=== PATIENT | female | born 1990 | race American Indian/Alaskan Native ===

== ENCOUNTER 2019-09-19 16:46 | Emergency (ER) | payer BC ==
--- NOTE | 2019-09-19 17:29 | XRay Report ---
CHEST 2 VIEWS INDICATION / CLINICAL INFORMATION: SOB, body aches. COMPARISON: None available. FINDINGS: SUPPORT DEVICES: None. HEART / MEDIASTINUM: No significant abnormality. LUNGS / PLEURA: No significant pulmonary or pleural abnormality. No pneumothorax. ADDITIONAL FINDINGS: No significant additional findings. IMPRESSION: 1. No acute abnormality of the chest. Signer Name: Jose Martin Orellana MD Signed: 09/19/2019 5:25 PM Workstation Name: [id number]
--- NOTE | 2019-09-19 19:55 | Emergency Department Report ---
ED General Adult HPI - General Chief complaint: Dyspnea/Respdistress Stated complaint: CP Time Seen by Provider: 09/19/19 19:39 Source: patient Mode of arrival: Ambulatory Limitations: No Limitations - History of Present Illness Initial comments: 28-year-old -[place]ron[place] female presents to the emergency room complaining of shortness of breath and chest pains. 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 Patient states that she feels like she is having many panic attacks. Patient states is been going on for the last 2 days. Patient does admit to sharp pain that is intermittent. Patient feels overall well but times. Patient states that she has not set a 5-year-old twins at home. She admits to difficulty sleeping admits to moments of crying. Feels like her patient is running short with her kids denies any headache. She admits to feeling distance at times. She denies any suicidal homicidal ideat ions. She states that she has had this in the past but has been able to talk herself down. Patient has a past medical history of asthma. - Related Data Previous Rx's Medication Instructions Recorded Last Taken Type diazePAM TAB [Valium] 5 mg PO QHS PRN #4 tablet 09/19/19 Unknown Rx Allergies Allergy/AdvReac Type Severity Reaction Status Date / Time shellfish derived AdvReac Swelling Verified 09/02/13 11:41 ED Review of Systems ROS: Stated complaint: CP Other details as noted in HPI ED Past Medical Hx - Past Medical History Previous Medical History?: Yes Hx Asthma: Yes - Surgical History Past Surgical History?: Yes Additional Surgical History: tonsilectomy - Social History Smoking Status: Former Smoker Substance Use Type: None - Medications Home Medications: Home Medications Medication Instructions Recorded Confirmed Last Taken Type diazePAM TAB [Valium] 5 mg PO QHS PRN #4 tablet 09/19/19 Unknown Rx ED Physical Exam - General Limitations: No Limitations General appearance: alert, in no apparent distress - Head Head exam: Present: atraumatic, normocephalic - Eye Eye exam: Present: normal appearance - ENT ENT exam: Present: mucous membranes moist - Neck Neck exam: Present: normal inspection - Respiratory Respiratory exam: Present: normal lung sounds bilaterally. Absent: respiratory distress - Cardiovascular Cardiovascular Exam: Present: regular rate, normal rhythm. Absent: systolic murmur, diastolic murmur, rubs, gallop - GI/Abdominal GI/Abdominal exam: Present: soft, normal bowel sounds - Extremities Exam Extremities exam: Present: normal inspection - Back Exam Back exam: Present: normal inspection - Neurological Exam Neurological exam: Present: alert, oriented X3 - Psychiatric Psychiatric exam: Present: normal affect, normal mood - Skin Skin exam: Present: warm, dry, intact, normal color. Absent: rash ED Course Vital Signs 09/19/19 09/19/19 16:50 19:53 Temperature 98.0 F 98.4 F Pulse Rate 77 74 Respiratory 20 12 Rate Blood Pressure 180/126 169/112 O2 Sat by Pulse 100 100 Oximetry ED Medical Decision Making - Lab Data Result diagrams: 09/19/19 20:15 09/19/19 20:15 - Radiology Data Radiology results: report reviewed Print Report Referring Physician:KALEE GONZALEZPatient Name:SALMA SALINASPatient ID:[id number] of :[id number]:FemaleAccession:[id number] Date:[id number] Status:Finalized Findings [address] [address] XRay Report Signed Patient: SALMA SALINAS MR#: [id number] : 1990 Acct:[id number] Age/Sex: 28 / F ADM Date: 09/19/19 Loc: ED Attending Dr: Ordering Physician: KALEE GONZALEZ MD Date of Service: 09/19/19 Procedure(s): XR chest routine 2V Accession Number(s): [id number] cc: KALEE GONZALEZ MD Fluoro Time In Minutes: CHEST 2 VIEWS INDICATION / CLINICAL INFORMATION: SOB, body aches. COMPARISON: None available. FINDINGS: SUPPORT DEVICES: None. HEART / MEDIASTINUM: No significant abnormality. LUNGS / PLEURA: No significant pulmonary or pleural abnormality. No p neumothorax. ADDITIONAL FINDINGS: No significant additional findings. IMPRESSION: 1. No acute abnormality of the chest. Signer Name: Jose Martin Orellana MD Signed: 09/19/2019 5:25 PM Workstation Name: [id number] Transcribed By: MN Dictated By: Jose Martin Orellana MD Electronically Authenticated By: Jose Martin Orellana MD Signed Date/Time: 09/19/19 1524 DD/ 23 TD/TT: - Medical Decision Making 28-year-old -Micron[place] female presents to the emergency room complaining of shortness of breath and chest pains. 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 Patient states that she feels like she is having many panic attacks. Patient states is been going on for the last 2 days. Patient does admit to sharp pain that is intermittent. Patient feels overall well but times. Patient states that she has not set a 5-year-old twins at home. She admits to difficulty sleeping admits to moments of crying. Feels like her patient is running short with her kids denies any headache. She admits to feeling distance at times. She denies any suicidal homicidal ideations. She states that she has had this in the past but has been able to talk herself down. Patient has a past medical history of asthma. Labs are stable negative troponin negative chest x-ray normal EKG. Ordered diazepam 5 mg p.o. Will treat patient for panic attacks. Discussed with patient I will refer her to [facility]. I discussed the patient to also reach out to her employee for employee assistance for stress related.Chest x-ray EKG and lab work all within normal limits. I am giving you a prescription for diazepam which is used for treating anxiety and panic attacks. I would like for you to take it only at bedtime when you are feeling overwhelmed to help with sleep and to calm your anxiety down. I am referring you to [facility] department as well as I would like for you to check out your employee mental health benefits to speak to someone regarding your anxiety and feeling overwhelmed while dealing with work-related issues at home. Critical care attestation.: If time is entered above; I have spent that time in minutes in the direct care of this critically ill patient, excluding procedure time. ED Disposition Clinical Impression: Panic attacks, Anxiety about health Disposition: DC-01 TO HOME OR SELFCARE Is pt being admited?: No Does the pt Need Aspirin: No Condition: Stable Instructions: Anxiety (ED) Additional Instructions: Chest x-ray EKG and lab work all within normal limits. I am giving you a prescription for diazepam which is used for treating anxiety and panic attacks. I would like for you to take it only at bedtime when you are feeling ov erwhelmed to help with sleep and to calm your anxiety down. I am referring you to [facility] department as well as I would like for you to check out your employee mental health benefits to speak to someone regarding your anxiety and feeling overwhelmed while dealing with work-related issues at home. Prescriptions: diazePAM TAB [Valium] 5 mg PO QHS PRN #4 tablet PRN Reason: Anxiety Referrals: PRIMARY CAREMD [Primary Care Provider] - 3-5 Days [facility] [Outside] - 3-5 Days [facility] [Outside] - 3-5 Days Your, primary care provider [Other] - 3-5 Days TASHA ROCHA MD [Staff Physician] - 3-5 Days Forms: Work/School Release Form(ED)
[2019-09-19 21:10] LABS: Basophils % (Auto) 0.5 % (0.0-1.8); Eosinophils # (Auto) 0.1 K/mm3 (0.0-0.4); Hematocrit 39.9 % (30.3-42.9); Hemoglobin 13.3 gm/dl (10.1-14.3); Lymphocytes # (Auto) 1.9 K/mm3 (1.2-5.4); Lymphocytes % (Auto) 25.2 % (13.4-35.0); Mean Corpuscular HGB Conc 33 % (30-34); Mean Corpuscular Volume 93 fl (79-97); Monocytes # (Auto) 0.4 K/mm3 (0.0-0.8); Monocytes % (Auto) 4.8 % (0.0-7.3); Platelet Count 232 K/mm3 (140-440); Red Cell Distribution Width 13.4 % (13.2-15.2)
[2019-09-19 21:29] LABS: Alanine Aminotransferase 12 units/L (7-56); Albumin 4.4 g/dL (3.9-5); BUN/Creatinine Ratio 18; Blood Urea Nitrogen 11 mg/dL (7-17); Calcium 9.4 mg/dL (8.4-10.2); Hemolysis Index 5
[2019-09-19] MEDS ORDERED: diazePAM 5 MG TAB PO ONE (21:43)
[2019-09-19] MEDS ORDERED: cloNIDine 0.1 MG TAB PO ONE (21:59)
[2019-09-19 22:41] VITALS: BP 179/120
== END 2019-09-19 23:40 | disposition home or self-care (01) ==
LOC: ED 16:46
DX: F41.0 Panic disorder [episodic paroxysmal anxiety] (principal); F41.9 Anxiety disorder, unspecified; J45.909 Unspecified asthma, uncomplicated; Z90.79 Acquired absence of other genital organ(s); Z91.013 Allergy to seafood
CPT/HCPCS: 36415; 71046; 80053; 84484; 85025; 93005

== ENCOUNTER 2021-04-22 11:28 | Emergency (ER) | payer BC, MEDICAID ==
[2021-04-22] MEDS ORDERED: AMOXICILLIN/K CLAV 875/125MG TAB PO ONE (12:20)
[2021-04-22] MEDS ORDERED: KETOROLAC 30 MG/1 ML INJ IV ONE (12:22)
--- NOTE | 2021-04-22 12:27 | Emergency Department Report ---
HPI - General Chief Complaint: High BP Time Seen by Provider: 04/22/21 12:00 - HPI HPI: 30-year-old female with history of preeclampsia 7 months ago presents from an urgent care clinic due to severely elevated blood pressure. The patient says that for the past 2 days she has had pain in her right ear. She went to an urgent care clinic today where she was diagnosed with right otitis media and otitis externa. She was prescribed Augmentin as well as antibiotic drops. However, she was noted to have severely elevated blood pressure in the 190s systolic and was sent to the emergency department for this reason. She states that she took blood pressure medications for 1 month after her but this was discontinued 6 months ago. She says since then she measures her blood pressure about once a week and is normally in the 150s systolic. The patient does say that the last time she had an ear infection, it induced labor and this was also the start of her preeclampsia. Other than her ear symptoms, she denies any other associated symptoms including headache, vision change, pain with extraocular movements, neck stiffness, neck pain, chest pain, shortness of breath, cough, abdominal pain, fever, nausea/vomiting, dysuria, focal weakness, sensory changes, confusion, or any other complaints. Her LMP was March 27. She is not vaccinated against COVID-19. In addition, she reports the pain in her right ear is 9 out of 10 in severity. There are no known aggravating or alleviating factors. She has not tried taking anything for the pain since yesterday. ED Past Medical Hx - Past Medical History Previous Medical History?: Yes Hx Asthma: Yes Additional medical history: PRECLAMPSIA - Surgical History Additional Surgical History: tonsilectomy - Social History Smoking Status: Light Tobacco Smoker Substance Use Type: None - Medications Home Medications: Home Medications Medication Instructions Recorded Confirmed Last Taken Type diazePAM TAB [Valium] 5 mg PO QHS PRN #4 tablet 09/19/19 04/22/21 Unknown Rx amLODIPine 5 mg PO DAILY #30 tab 04/22/21 Unknown Rx hydroCHLOROthiazide 12.5 mg PO QDAY #30 capsule 04/22/21 Unknown Rx [Hydrochlorothiazide] ED Review of Systems ROS: Stated complaint: BP HIGH Other details as noted in HPI Constitutional: denies: chills, fever Eyes: denies: eye pain, vision change ENT: ear pain. denies: throat pain, congestion Respiratory: denies: cough, shortness of breath Cardiovascular: denies: chest pain, palpitations, syncope Endocrine: denies: flushing, intolerance to cold, intolerance to heat Gastrointestinal: denies: abdominal pain, nausea, vomiting Genitourinary: denies: dysuria, frequency Musculoskeletal: denies: back pain, arthralgia Skin: denies: rash, lesions Neurological: denies: headache, weakness, numbness Psychiatric: denies: anxiety, depression Physical Exam - Physical Exam Vital Signs: Vital Signs 04/22/21 04/22/21 04/22/21 11:35 11:56 12:01 Temperature 98.5 F Pulse Rate 93 H Respiratory 20 16 Rate Blood Pressure 184/127 187/118 O2 Sat by Pulse 99 100 100 Oximetry Physical Exam: GENERAL: Well developed and well nourished. No acute distress HEAD: Normocephalic. No obvious signs of trauma. ENT: Slightly dry mucous membranes. Left TM normal. Right TM is obscured by swelling of the external auditory canal with tenderness to palpation of the tragus. Unable to visualize the TM. EYES: Extraocular movements are intact. Pupils are equal round and reactive to light bilaterally NECK: Supple. Full ROM is intact. Trachea is midline. LUNGS: Nonlabored breathing. Equal chest rise bilaterally. Clear to auscultation bilaterally. CARDIOVASCULAR: Regular rate and rhythm. No murmurs or rubs. VASCULAR: Cap refill < 2 seconds ABDOMEN: Abdomen is soft and nondistended. There is no significant tenderness, guarding or rebound. SKIN: Skin is warm and dry NEURO: Patient is awake, alert, and oriented. pcts II-XII grossly intact. No focal deficits. Normal motor and sensory exam throughout. Normal speech. MUSCULOSKELETAL: No obvious deformities. No significant tenderness. Normal ROM throughout. BACK/SPINE: No midline tenderness or step-offs of the C/T/L spine. No costovertebral angle tenderness. ED Course Vital Signs 04/22/21 04/22/21 04/22/21 11:35 11:56 12:01 Temperature 98.5 F Pulse Rate 93 H Respiratory 20 16 Rate Blood Pressure 184/127 187/118 O2 Sat by Pulse 99 100 100 Oximetry ED Medical Decision Making - Lab Data Result diagrams: 04/22/21 12:28 04/22/21 12:28 - EKG Data -: EKG Interpreted by Me - EKG Data 04/22/21 13:30 Normal sinus rhythm. Normal axis. Normal intervals. No ectopy. Nonspecific T wave inversions. No significant ST segment abnormalities. - Radiology Data Radiology results: report reviewed - Medical Decision Making 30-year-old female with history of preeclampsia 7 months ago presenting from urgent care due to asymptomatic hypertension. Patient was diagnosed with external and internal otitis of the right ear was prescribed antibiotic pills and drops but was noted to have extremely elevated blood pressure. Upon arrival, the patient's blood pressure was in the 180s systolic but while in the room the patient's blood pressure was in the 210s over 130s. She has slightly dry mucous membranes and her right external auditory canal is swollen, obscuring view of the TM. She has a nonfocal neurologic exam. The remainder of her physical exam is within normal limits. We will give 1 L of IV fluids, 10 mg of IV labetalol given extremely elevated blood pressure which qualifies as hyperten sive urgency/emergency. We will also give 30 mg of Toradol. We will obtain labs, EKG, and chest x-ray and reassess. On repeat assessment at 1330, the patient's blood pressure is improved but still elevated in the 180s systolic. Labs have resulted and reveal no significant leukocytosis or anemia. Creatinine is within normal range and there are no significant electrolyte abnormalities. Urinalysis is negative. Chest x-ray reveals no acute abnormalities. On repeat assessment again at 1430, the patient reports that she feels slightly better with less pain in her right ear. She remains hypertensive in the 170s. Given that she was prescribed amlodipine and HCTZ in the past, we discussed opti ons moving forward and agreed to represcribe these medications at their previous doses. I instructed the patient to take all prescribed antibiotics including the drops as prescribed at her urgent care clinic. She will follow up in the next several days with her primary care doctor regarding her blood pressure and measure her blood pressure at home. The patient expressed understanding and agreement with the plan of care. Critical care attestation.: If time is entered above; I have spent that time in minutes in the direct care of this critically ill patient, excluding procedure time. ED Disposition Clinical Impression: Hypertensive urgency Right otitis externa Qualifiers: Otitis externa type: unspecified type Chronicity: unspecified Qualified Code(s): H60.91 - Unspecified otitis externa, right ear Hypertension Qualifiers: Hypertension type: unspecified Qualified Code(s): I10 - Essential (primary) hypertension Disposition: 01 HOME / SELF CARE / HOMELESS Is pt being admited?: No Condition: Stable Instructions: Ear Drops, Adult, Otitis Media, Adult, [id number], Managing Your Hypertension, Hypertension, Adult, Hypertension (ED) Additional Instructions: Please take the antibiotic and use the antibiotic drops as prescribed. I have represcribed your amlodipine and HCTZ. Monitor your blood pressure and follow- up with a primary care doctor over the next few days. Return to the emergency department should you develop worsening symptoms or new health concerns. Prescriptions: amLODIPine 5 mg PO DAILY #30 tab hydroCHLOROthiazide [Hydrochlorothiazide] 12.5 mg PO QDAY #30 capsule Referrals: PRIMARY CARE, [Primary Care Provider] - 3-5 Days
[2021-04-22 12:51] LABS: Basophils % (Auto) 0.4 % (0.0-1.8); Eosinophils # (Auto) 0.1 K/mm3 (0.0-0.4); Eosinophils % (Auto) 1.1 % (0.0-4.3); Hematocrit 41.2 % (30.3-42.9); Hemoglobin 13.2 gm/dl (10.1-14.3); Lymphocytes # (Auto) 1.5 K/mm3 (1.2-5.4); Lymphocytes % (Auto) 19.4 % (13.4-35.0); Mean Corpuscular HGB Conc 32 % (30-34); Mean Corpuscular Volume 91 fl (79-97); Monocytes # (Auto) 0.4 K/mm3 (0.0-0.8); Monocytes % (Auto) 4.9 % (0.0-7.3); Platelet Count 222 K/mm3 (140-440); Red Blood Count 4.54 M/mm3 (3.65-5.03); Red Cell Distribution Width 13.9 % (13.2-15.2)
[2021-04-22 13:02] LABS: Bilirubin,Urine NEG (Negative); Blood,Urine NEG (Negative); Color,Urine Yellow (Yellow); Mucus,Urine FEW /HPF; Protein,Urine <15 mg/dL mg/dL (Negative); Urobilinogen,Urine < 2.0 mg/dL (<2.0)
[2021-04-22 13:05] LABS: HCG Qualitative,Urine Negative (Negative)
[2021-04-22 13:08] LABS: Blood Urea Nitrogen 9 mg/dL (7-17); Calcium 9.1 mg/dL (8.4-10.2); Hemolysis Index 108
[2021-04-22 13:09] LABS: BUN/Creatinine Ratio 18
[2021-04-22 13:12] LABS: Alanine Aminotransferase 10 units/L (7-56); Albumin 4.3 g/dL (3.9-5)
[2021-04-22 13:15] LABS: Bilirubin,Direct < 0.2 mg/dL (0-0.2)
--- NOTE | 2021-04-22 14:12 | XRay Report ---
CHEST 1 VIEW 04/22/2021 1:00 PM INDICATION / CLINICAL INFORMATION: HTN. COMPARISON: 07/20/2019 FINDINGS: SUPPORT DEVICES: None. HEART / MEDIASTINUM: No significant abnormality. LUNGS / PLEURA: No significant pulmonary or pleural abnormality. No pneumothorax. ADDITIONAL FINDINGS: No significant additional findings. IMPRESSION: 1. No acute findings. Signer Name: Baron Ferrell MD Signed: 04/22/2021 2:07 PM Workstation Name: [id number]
[2021-04-22 14:48] VITALS: BP 177/106
--- NOTE | 2021-04-23 12:51 | Electrocardiograph Report ---
[facility] Test Date: 2021-04-22 Test Time: 13:25:34 Pat Name: SALMA SALINAS Department: Room: Gender: F Special Client [employer]: [employer] : 1990 Requested By: SANDI MENDEZ Order Number: [id number] Reading MD: Juan Antonio Saab Measurements Intervals [place] Rate: 67 P: 41 [place]: 170 QRS: 26 QRSD: 91 T: 10 QT: 361 QTc: 381 Interpretive Statements Sinus rhythm Atrial premature complex No previous ECG available for comparison Electronically Signed On 04-23-2021 12:50:21 EST by Juan Antonio Saab
== END 2021-04-22 14:48 | disposition home or self-care (01) ==
LOC: ED 11:28
DX: I16.0 Hypertensive urgency (principal); H60.91 Unspecified otitis externa, right ear; J45.909 Unspecified asthma, uncomplicated; F17.200 Nicotine dependence, unspecified, uncomplicated
CPT/HCPCS: 36415; 71045; 80048; 80076; 81001; 81025; 83880; 84484; 85025; 87086; 93005; 96374; 96375; 99284; J1885; J3490

== ENCOUNTER 2021-08-05 16:06 | Emergency (ER) | payer MEDICAID ==
[2021-08-05 17:08] VITALS: BP 165/109
== END 2021-08-05 19:00 | disposition left against medical advice (07) ==
LOC: ED 16:06
DX: S09.90XA Unspecified injury of head, initial encounter (principal); Z53.21 Procedure and treatment not carried out due to patient leaving prior to being seen by health care provider; W18.39XA Other fall on same level, initial encounter; Y93.89 Activity, other specified; Y92.89 Other specified places as the place of occurrence of the external cause; Y99.8 Other external cause status